=== PATIENT | female | born 1990 | race Caucasian/White ===

== ENCOUNTER 2019-11-05 21:47 | Emergency (ER) | payer OTHER ==
[~2019-11-05] VITALS: Ht 185.4 cm; Wt 70.3 kg
== END 2019-11-06 00:22 | disposition home or self-care (01) ==
LOC: ED 21:47
DX: S01.01XA Laceration without foreign body of scalp, initial encounter (principal); M79.632 Pain in left forearm; F17.200 Nicotine dependence, unspecified, uncomplicated; W18.30XA Fall on same level, unspecified, initial encounter
CPT/HCPCS: 12001; 73090; 99283-25

== ENCOUNTER 2020-11-29 11:39 | Inpatient (IN) | payer OTHER ==
[~2020-11-29] VITALS: Ht 165.1 cm; Wt 88.5 kg
--- NOTE | ~2020-11-29 | OR ---
[facility] [address], [place] [address] Draft DATE OF OPERATION: 01/02/2021 SURGEON: Alena Cabrera MD CERTIFIED FIRST ASSISTANT: Dr. Cerda. PREOPERATIVE DIAGNOSIS: Term , previous difficult delivery. POSTOPERATIVE DIAGNOSIS: Term , previous difficult delivery, delivered. PROCEDURE: Primary section with low segment transverse uterine incision. ANESTHESIA: Spinal. ESTIMATED BLOOD LOSS: 600 mL. DRAINS: Barrett catheter. INDICATIONS AND FINDINGS: The patient is a 30-year-old female, 2, para 1, who was admitted at 39 weeks for primary section for history of a difficult . She was delivered of a little boy via lower segment transverse uterine incision with Apgars of 9 and 9 and weight of 8 pounds. There was a loose nuchal cord x1. The uterus, tubes, ovaries, and placenta appeared normal. DESCRIPTION OF PROCEDURE: The patient was prepped and draped in the supine position. A Pfannenstiel skin incision was made and carried down through the fascia. The incision was extended laterally. The inferior and superior fascial flaps were then created. The muscles bluntly divided and the peritoneum opened bluntly and the incision extended bluntly. The Darrick retractor was then placed. The uterine incision was made at the upper aspect of the peritoneal reflection. The incision was extended bluntly. The baby was delivered with the above findings and handed off to the pediatric staff in attendance. The placenta was removed PATIENT NAME: ANN SWEENEY OPERATIVE REPORT DATE OF : 88 REPORT #: [id number] PHYSICIAN: ALENA CABRERA MD PCP: YOU SANCHEZ DO REPORT IS CONFIDENTIAL AND NOT TO BE RELEASED WITHOUT AUTHORIZATION [facility] [address], [place] [address] Draft manually. The uterus explored with a lap tape assuring no remaining fragments. The edges of the incision were identified and the uterus closed in 2 layers using 0 Monocryl. The first layer was a running locking stitch and the second was a vertical imbricating stitch. Bleeding points on the peritoneum were controlled with cautery. The abdomen was then copiously irrigated, inspected and good hemostasis was noted. The Darrick retractor was removed and the peritoneum identified. An ACell graft was laid over the lower segment to aid in healing. The peritoneum was then closed with a running suture of 3-0 Vicryl. The muscles were brought together with interrupted sutures of 3-0 Vicryl. Bleeding points were controlled with cautery. This layer was irrigated, inspected, and good hemostasis was noted. The fascia was closed from each angle to the midline with a running suture of 0 Vicryl. Bleeding points in the subcu were controlled with cautery and this layer irrigated. Good hemostasis was noted. The deep space was closed with interrupted sutures of 3-0 Vicryl. The skin was closed with fish. All sponge and needle counts were correct. She tolerated this procedure well and was taken to the recovery room in good condition. Alena Cabrera MD PJW/MODL /[id number] cc: Dr. Cerda Copies: ~ PATIENT NAME: ANN SWEENEY OPERATIVE REPORT DATE OF : 88 REPORT #: [id number] PHYSICIAN: ALENA CABRERA MD PCP: YOU SANCHEZ DO REPORT IS CONFIDENTIAL AND NOT TO BE RELEASED WITHOUT AUTHORIZATION
--- NOTE | 2021-01-02 08:40 | NUR ---
01/02/21 0840 Berenice Harrell 0817-PATIENT ARRIVED TO ROOM 104 FOR RECOVERY. PATIENT AWAKE DENIES PAIN OR NAUSEA. RA RR EVEN ITCHING WAS GIVEN MEDICATION IN OR. LR WITH 20 PITOCIN TO LEFT HAND CDI. DAD AT BEDSIDE. FUNDUS FIRM RIGHT 1 BELOW UBILICUS LIGHT RUBRA DRAINAGE ON SARAH PAD. LOGAN CATHETER DRAINING CLEAR YELLOW URINE 0821-PATIENT FEEDING BABY TO BREAST DAD AT BEDSIDE. REPORTS "ITCHING GETTING BETTER" 0825-FUNDUS REMAINS RIGHT FIRM CHECKED WITH [facility] RN ANDREY AND LARGE AMT OF RUBRA DRAINAGE FROM VAGINA. ANDREY MASSAGING FUNDUS SARAH PAD REMOVED. 0835-FUNDUS 2 BELOW UMBILICUS LIGHT RUBRA DRAINAGE. PATIENT FEEDING BABY TO BREAST DENIES PAIN OR NAUSEA. SPINAL LEVEL AT T10
--- NOTE | 2021-01-02 10:27 | PR ---
[facility] [address] [place] [address] Signed PP Progress Notes Datetime Report Generated by CPN: 01/02/2021 10:27 SUBJECTIVE: [id number] Pain: Within Normal Limits Pain Comments: Called back because of increased bleeding Vital Signs: [id number] Vital Signs: Reviewed; Within Normal Limits Abdomen/Uterus: Abnormal Lochia: Abnormal Exam Comments: Fundus firm, sl tender at U-3. Clot removed manually from the uterus. IMPRESSION/PLAN/PROCEDURES: [id number] Other Impression: pp hemorrhage Other Plans: continue close observation Progress Notes: Bleeding much improved at this time after removal of intrauterine clot + IV pit/IM methergine/po Cytotec/IV TXA plus IV Dilaudid and IV Phenergan and Reglan and po Lomotil. Will need to continue close observation for her bleeding. Signing Physician: Alena Cabrera MD Copies: ~ *Electronically Signed* 01/02/21 1027 ALENA CABRERA MD PATIENT NAME: ANN SWEENEY PROGRESS NOTE DATE OF : 88 PHYSICIAN: ALENA CABRERA MD RPT #: [id number] REPORT IS CONFIDENTIAL AND NOT TO BE RELEASED WITHOUT AUTHORIZATION
--- NOTE | 2021-01-03 08:13 | PR ---
[facility] [address] [facility] [place], [place] [address] Signed PP Progress Notes Datetime Report Generated by CPN: 01/03/2021 08:13 SUBJECTIVE: [id number] Pain: Within Normal Limits Pain Comments: c/o right shoulder pain Nausea/Vomiting: Denies Flatus: No Vital Signs: [id number] Vital Signs: Reviewed; Within Normal Limits EXAM: Ongoing Cardiovascular: Normal Respiratory: Normal Abdomen/Uterus: Abnormal Lochia: Normal Vulva/Perineum: Not Done Breasts: Not Done CVA Tenderness: Not Done Extremities: Normal Incision: Normal Progress: Normal Exam Comments: Abdomen with active BS. Fundus firm, NT @ U-2. H/H 30.9, WBC 23.5, plat 208k IMPRESSION/PLAN/PROCEDURES: [id number] Impression: Normal Progression Other Impression: pp hemorrhage Other Plans: ambulate, shower Procedures: None Progress Notes: Doing well overall. Signing Physician: Alena Cabrera MD Copies: ~ *Electronically Signed* 01/03/21812 ALENA CABRERA MD PATIENT NAME: ANN SWEENEY PROGRESS NOTE DATE OF : 88 PHYSICIAN: ALENA CABRERA MD RPT #: [id number] REPORT IS CONFIDENTIAL AND NOT TO BE RELEASED WITHOUT AUTHORIZATION
--- NOTE | 2021-01-04 10:28 | PR ---
[facility] [address] [facility] [place], [place] [address] Signed PP Progress Notes Datetime Report Generated by CPN: 01/04/2021 10:28 SUBJECTIVE: [id number] Pain: Within Normal Limits Pain Comments: c/o right shoulder pain Nausea/Vomiting: Denies Flatus: No Vital Signs: [id number] Vital Signs: Reviewed; Within Normal Limits EXAM: Met Cardiovascular: Not Done Respiratory: Not Done Abdomen/Uterus: Abnormal Lochia: Normal Vulva/Perineum: Not Done Breasts: Not Done CVA Tenderness: Not Done Extremities: Normal Incision: Normal Progress: Normal Exam Comments: Abdomen with active BS. Fundus firm, NT @ U-2. IMPRESSION/PLAN/PROCEDURES: [id number] Impression: Normal Progression Other Impression: pp hemorrhage Plan: Remove Cris; Discharge Other Plans: ambulate, shower Procedures: None Progress Notes: Doing well. She is ready for D/C. Signing Physician: Alena Cabrera MD Copies: ~ *Electronically Signed* 01/04/21 1028 ALENA CABRERA MD PATIENT NAME: ANN SWEENEY PROGRESS NOTE DATE OF : 88 PHYSICIAN: ALENA CABRERA MD RPT #: [id number] REPORT IS CONFIDENTIAL AND NOT TO BE RELEASED WITHOUT AUTHORIZATION
== END 2021-01-04 11:25 | disposition home or self-care (01) | DRG 787 ==
LOC: FBC 01-02 05:20
PROVIDERS: ADMIT Obstetrics & Gynecology; ATTEND Obstetrics & Gynecology
PROC: 0UC97ZZ Extirpation of Matter from Uterus, Via Natural or Artificial Opening (ICD-10-PCS; 2021-01-02)
PROC: 10D00Z1 Extraction of Products of Conception, Low, Open Approach (ICD-10-PCS; principal; 2021-01-02 06:45)
DX: O69.81X0 Labor and delivery complicated by cord around neck, without compression, not applicable or unspecified (principal); O72.1 Other immediate postpartum hemorrhage; O99.324 Drug use complicating childbirth; Z3A.39 39 weeks gestation of pregnancy; Z37.0 Single live birth; Z67.10 Type A blood, Rh positive; F12.90 Cannabis use, unspecified, uncomplicated
CPT/HCPCS: 01961; 85007; 85025; 85027; 85384; 85610; 85730; 86850; 86900; 86901; A9270; J0690; J1100; J1170; J2001; J2210; J2274; J2300; J2370; J2405; J2550; J2590; J2765; J3010; J7121

== ENCOUNTER 2021-09-29 11:38 | Emergency (ER) | payer OTHER ==
[~2021-09-29] VITALS: Ht 152.4 cm; Wt 88.5 kg
--- OUTSIDE RECORDS SUMMARY | 2021-09-29 11:42 | XMS ---
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 ENancy VISIT COUNT (12 MO.) 1 LINDA [place] TOTAL 1 NOTE: Visits indicate total known visits. ED/UCC VISIT TRACKING (12 MO.) 09/29/2021 11:39 [place] [place] TYPE: Emergency COMPLAINT: - BODY PAIN INPATIENT VISIT TRACKING (12 MO.) 01/02/2021 05:20 [place] [place] TYPE: [facility] COMPLAINT: - REPEAT DIAGNOSES: - 39 weeks gestation of - Labor and delivery complicated by cord around neck, without compression, not applicable or unspecified - Cannabis use, unspecified, uncomplicated - 39 weeks gestation of - Single live - Drug use complicating childbirth - Drug use complicating childbirth - Cannabis use, unspecified, uncomplicated - Single live - Other immediate hemorrhage - Type A blood, Rh positive - Other immediate hemorrhage - Labor and delivery complicated by cord around neck, without compression, not applicable or unspecified - Encounter for full-term uncomplicated delivery - Type A blood, Rh positive [email or web address]
[2021-09-29] MEDS ORDERED: PREDNISONE20 MG PO (12:49)
[2021-09-29] MEDS ORDERED: HYDROCODON-ACE1 EA10 PO (12:49)
== END 2021-09-29 13:02 | disposition home or self-care (01) ==
LOC: ED 11:38
DX: M54.12 Radiculopathy, cervical region (principal); Z79.52 Long term (current) use of systemic steroids
CPT/HCPCS: J7512

== ENCOUNTER 2023-01-30 19:24 | Emergency (ER) | payer OTHER ==
[~2023-01-30] VITALS: Ht 167.6 cm; Wt 76.0 kg
[~2023-01-30 19:24] MED LIST: HYDROCODON-ACE1 EA10 PO; PREDNISONE20 MG PO
[2023-01-30 20:27] LABS: INFLUENZA B NAA NEGATIVE (NEGATIVE); RESPIRATORY SYNCYTIAL VIR NAA NEGATIVE (NEGATIVE)
[2023-01-30] MEDS ORDERED: BENZONATATE100 MG PO (20:34)
[2023-01-30] MEDS ORDERED: NASAL DECONGEST30 MG PO (20:34)
[2023-01-30 21:04] VITALS: BP 138/88
== END 2023-01-30 21:04 | disposition home or self-care (01) ==
LOC: ED 19:24
PROVIDERS: Family Medicine
DX: J40 Bronchitis, not specified as acute or chronic (principal); F17.200 Nicotine dependence, unspecified, uncomplicated; Z20.822 Contact with and (suspected) exposure to COVID-19
CPT/HCPCS: 71045; 87502; 96372; 99283-25; A9270; C9803; J1100; U0002

== ENCOUNTER 2024-01-04 01:52 | Emergency (ER) | payer OTHER ==
[~2024-01-04] VITALS: Ht 167.6 cm; Wt 72.0 kg
[~2024-01-04 01:52] MED LIST changes: +BENZONATATE100 MG PO; +NASAL DECONGEST30 MG PO
--- OUTSIDE RECORDS SUMMARY | 2024-01-04 01:58 | XMS ---
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 - 2 Visits in 30 Days CARE PROVIDERS Festus Huston DO [facility] Current PHONE: Unknown [facility] Current \F\ [facility] PHONE: [phone] Rebecca has no Care Guidelines for this patient. Jarek VISIT COUNT (12 MO.) 3 LINDA Coxony Reyna TOTAL 3 NOTE: Visits indicate total known visits. ED/UCC VISIT TRACKING (12 MO.) 01/04/2024 01:52 [facility] [place] TYPE: Emergency COMPLAINT: - PINCHED NERVE 01/03/2024 12:23 [facility] [place] TYPE: Emergency COMPLAINT: - BACK PAIN 01/30/2023 19:25 [facility] [place] TYPE: Emergency COMPLAINT: - THROAT SWELLING, COUGHING, FEVER DIAGNOSES: - Bronchitis, not specified as acute or chronic - Contact with and (suspected) exposure to COVID-19 - Cough, unspecified - Nicotine dependence, unspecified, uncomplicated INPATIENT VISIT TRACKING (12 MO.) No inpatient visits to display in this time frame [email or web address]
[2024-01-04] MEDS ORDERED: KETOROLAC TROMETHAMINE 60 MG/2 ML VIAL IM ONE (02:00)
[2024-01-04] MEDS ORDERED: diazePAM 10 MG/2 ML SYR IM ONE (02:00)
[2024-01-04] MEDS ORDERED: TRAMADOL HCL 50 MG HOME.PACK PO ONE (02:15)
[2024-01-04] MEDS ORDERED: methylPREDNISolone 4 MG HOME.PACK PO ONE (02:15)
[2024-01-04] MEDS ORDERED: LIDOCAINE HCL 4% 1 EACH PATCH TD ONE (02:15)
[2024-01-04 02:30] VITALS: BP 158/89
== END 2024-01-04 02:31 | disposition home or self-care (01) ==
LOC: ED 01:52
DX: S29.012A Strain of muscle and tendon of back wall of thorax, initial encounter (principal); F17.200 Nicotine dependence, unspecified, uncomplicated; X58.XXXA Exposure to other specified factors, initial encounter
CPT/HCPCS: 96372; 99283; A9270; J1885

== ENCOUNTER 2024-05-21 23:23 | Emergency (ER) | payer OTHER ==
[~2024-05-21] VITALS: Ht 167.6 cm; Wt 89.0 kg
[2024-05-22 00:50] VITALS: BP 127/70
== END 2024-05-22 00:51 | disposition home or self-care (01) ==
LOC: ED 23:23
DX: S93.401A Sprain of unspecified ligament of right ankle, initial encounter (principal); F17.200 Nicotine dependence, unspecified, uncomplicated; W01.0XXA Fall on same level from slipping, tripping and stumbling without subsequent striking against object, initial encounter
CPT/HCPCS: 73610; 99283